=== PATIENT | female | born 1985 | race Caucasian/White ===

== ENCOUNTER 2017-07-17 16:09 | Emergency (ER) | payer OTHER ==
[2017-07-17] MEDS ORDERED: KETOROLAC 30 MG/ML 1 ML VIAL IVP STA (16:46)
[2017-07-17] MEDS ORDERED: SODIUM CHLORIDE 0.9% 1,000 ML IV ONE (16:46)
[2017-07-17 17:24] LABS: Basophils % (A) 1 %; Eosinophils # (A) 0.2 k/uL (0-0.7); Eosinophils % (A) 3 %; HCT 44.3 % (34.0-46.0); HGB 14.3 gm/dL (11.4-16.0); Lymphocytes # (A) 2.2 k/uL (1.0-4.8); Lymphocytes % (A) 28 %; MCH 28.5 pg (25.0-35.0); MCHC 32.3 g/dL (31.0-37.0); MCV 88.4 fL (80.0-100.0); Monocytes # (A) 0.5 k/uL (0-1.0); Monocytes % (A) 7 %; Neutrophils # (A) 4.8 k/uL (1.3-7.7); Neutrophils % (A) 60 %; Platelet Count 276 k/uL (150-450); RBC 5.02 m/uL (3.80-5.40); RDW 12.5 % (11.5-15.5); WBC 7.9 k/uL (3.8-10.6)
[2017-07-17 17:36] LABS: ALT 29 U/L (9-52); AST 27 U/L (14-36); Albumin 4.3 g/dL (3.5-5.0); Alkaline Phosphatase 46 U/L (38-126); Anion Gap 10 mmol/L; Blood Urea Nitrogen 9 mg/dL (7-17); Calcium 9.6 mg/dL (8.4-10.2); Carbon Dioxide 27 mmol/L (22-30); Chloride 104 mmol/L (98-107); Glucose 101 mg/dL (74-99); Potassium 3.6 mmol/L (3.5-5.1); Sodium 141 mmol/L (137-145); Total Bilirubin 0.4 mg/dL (0.2-1.3); Total Protein 7.1 g/dL (6.3-8.2)
--- NOTE | 2017-07-17 17:45 | ED ---
Chest Pain HPI - General Chief Complaint: Chest Pain Stated Complaint: Chest Pain Time Seen by Provider: 07/17/17 16:40 Source: patient Mode of arrival: wheelchair Limitations: no limitations - History of Present Illness Initial Comments: Is a 32-year-old female with no past medical history presents him in [facility] [place] for chest pain. She states it started last night before she went to bed and persisted through the night. She states that it woke her up multiple times throughout the night. She states that nothing seems to make it better or worse pain she describes as a sharp sensation. This lasted mild cough and shortness of breath associated with it. She denies any nausea, vomiting, or diarrhea. No fevers or chills. She denies any history of DVT or PE. She is not taking any control. She does have a family history of tachycardia per the mother. No other acute complaints at this time. - Related Data Previous Rx's Medication Instructions Recorded Methocarbamol [Robaxin] 1,000 mg PO QID #20 tab 07/17/17 Naproxen [Naprosyn] 500 mg PO Q12HR #30 tab 07/17/17 Allergies Allergy/AdvReac Type Severity Reaction Status Date / Time No Known Allergies Allergy Verified 07/17/17 16:51 Review of Systems ROS Statement: Those systems with pertinent positive or pertinent negative responses have been documented in the HPI. ROS Other: All systems not noted in ROS Statement are negative. Past Medical History Past Medical History: No Reported History History of Any Multi-Drug Resistant Organisms: None Reported Additional Past Surgical History / Comment(s): d&c Past Anesthesia/Blood Transfusion Reactions: No Reported Reaction Past Psychological History: No Psychological Hx Reported Smoking Status: Current every day smoker Past Alcohol Use History: None Reported Past Drug Use History: None Reported - Past Family History Father Family Medical History: No Reported History General Exam - General Exam Comments Initial Comments: [Awake alert] [Appears comfortable] Head: [Normocephalic atraumatic] Eyes: [no conjunctival injection] [No scleral icterus] [EOMI] Neck: [No JVD] [Supple] Heart: [Regular rate rhythm] [normal S1-S2] [no murmurs] Lungs: [Clear to auscultation bilaterally] [No wheezing] [No rales] Abdomen: [Soft] [nondistended] [nontender] Extremities: [Non edematous] [DP pulses intact] [Radial pulses intact] Neuro: [A&Ox3] [No focal neurologic deficits] Psych: [Appropriate mood and affect] Limitations: no limitations Course Vital Signs 07/17/17 07/17/17 16:13 18:04 Temperature 98.1 F Pulse Rate 108 H 84 Respiratory 16 18 Rate Blood Pressure 175/76 110/60 O2 Sat by Pulse 100 100 Oximetry - Reevaluation(s) Reevaluation #1: 07/17/17 18:22 EKG showing normal sinus rhythm with a rate of 94. No abnormal ST segment changes or T-wave inversions. QTC is 4:30. Other intervals normal. No ectopy. Chest Pain MDM - MDM This is a 32-year-old female who presents emergency department for chest pain. She was evaluated with a chest x-ray, troponin, EKG, and d-dimer. All of these were unremarkable. Patient was given Toradol and fluids and had improvement in her tachycardia and pain. Patient does state that she lifts a lot at work. I suspect that her pain may be chest wall discomfort. I'm going to start her on Naprosyn and Robaxin however told the patient that she needs further workup for this chest pain if it continues to be an issue. She is going to follow-up with her primary doctor, Dr. Ontiveors, and inquire about a stress test or other testing for her chest pain. I told her that she had worsening chest pain, or any new symptoms with her chest pain she is return emergency Department copied for reevaluation. All questions were answered. Disposition Clinical Impression: Chest pain Disposition: HOME SELF-CARE Condition: Stable Instructions: Chest Pain (ED) Prescriptions: Methocarbamol [Robaxin] 1,000 mg PO QID #20 tab Naproxen [Naprosyn] 500 mg PO Q12HR #30 tab Referrals: Nitesh Nicole MD [Primary Care Provider] - 1-2 days
[2017-07-17 17:52] LABS: Creatine Kinase MB 0.4 ng/mL (0.0-2.4); Troponin I <0.012 ng/mL (0.000-0.034)
--- NOTE | 2017-07-17 18:03 | XR ---
EXAMINATION TYPE: XR chest 2V DATE OF EXAM: 07/17/2017 COMPARISON: NONE HISTORY: Chest pain TECHNIQUE: Frontal and lateral views of the chest are obtained. FINDINGS: Heart and mediastinum are normal. Lungs are clear. Diaphragm is normal. Bony thorax appear s normal. IMPRESSION: Normal chest
[2017-07-17 18:26] VITALS: BP 116/63; PULSE 89; RESP 16; TEMP 98
== END 2017-07-17 18:32 | disposition home or self-care (01) ==
LOC: EC 16:09
DX: R07.9 Chest pain, unspecified (principal); R00.0 Tachycardia, unspecified; R05 Cough; R06.02 Shortness of breath; F17.200 Nicotine dependence, unspecified, uncomplicated; Z82.49 Family history of ischemic heart disease and other diseases of the circulatory system
CPT/HCPCS: 36415; 93005; 85379; 80053; 82553; 84484; 85025; 81025; 71046; 99285; 96374; 96361; J1885

== ENCOUNTER 2018-01-11 17:29 | Emergency (ER) | payer OTHER ==
[2018-01-11 17:43] VITALS: BP 128/80; PULSE 103; RESP 18; TEMP 98.5
[2018-01-11] MEDS ORDERED: BENZOCAINE SPRAY 1 CAN MUCOUS MEM ONE (18:24)
--- NOTE | 2018-01-11 18:29 | ED ---
ENT HPI - General Chief complaint: Dental/Oral Stated complaint: facial swelling Time Seen by Provider: 01/11/18 18:03 Source: patient Mode of arrival: ambulatory Limitations: no limitations - History of Present Illness Initial comments: This is a 32yo female with no PMH who presents today for cc of left upper tooth pay x2days and left sided facial swelling. Pt states that she had poor dentition and has had a cracked upper left tooth for weeks. She has been experiencing tooth sensitivity to hot and cold beverages since it cracked however last night the past was constant. She woke up this AM with left sided facial swelling and could feel a pocket near the cracked tooth. She was worried about an abscess and presented to the emergency department. Pt denies fever, chills, swelling below the mandible, masses/swelling bellow tongue, difficulty breathing or swallowing, confusion, dizziness, headache or any other symptoms. Pt states she just wants antibiotics so it doesnt spread. Upon presentation pt VS stable, afebrile. Patient denies any recent shortness of breath, chest pain, back pain, abdominal pain, nausea or vomiting, numbness or tingling, dysuria or hematuria, constipation or diarrhea, headaches or visual changes, or any other complaints. - Related Data Previous Rx's Medication Instructions Recorded Methocarbamol [Robaxin] 1,000 mg PO QID #20 tab 07/17/17 Naproxen [Naprosyn] 500 mg PO Q12HR #30 tab 07/17/17 Ibuprofen [Motrin] 800 mg PO Q6H PRN 7 Days #28 tab 01/11/18 Penicillin V Potassium [Pen Vee K] 500 mg PO QID 7 Days #28 tablet 01/11/18 Allergies Allergy/AdvReac Type Severity Reaction Status Date / Time No Known Allergies Allergy Verified 01/11/18 17:41 Review of Systems ROS Statement: Those systems with pertinent positive or pertinent negative responses have been documented in the HPI. ROS Other: All systems not noted in ROS Statement are negative. Constitutional: Denies: fever, chills, weakness, night sweats ENT: Reports: as per HPI, dental pain Respiratory: Denies: cough, dyspnea Cardiovascular: Denies: chest pain, palpitations Endocrine: Denies: fatigue Gastrointestinal: Denies: abdominal pain, nausea, diarrhea, constipation Genitourinary: Denies: urgency, dysuria Musculoskeletal: Denies: back pain Skin: Denies: rash, lesions Neurological: Denies: headache, weakness, numbness, paresthesias, confusion, abnormal gait Past Medical History Past Medical History: No Reported History History of Any Multi-Drug Resistant Organisms: None Reported Additional Past Surgical History / Comment(s): d&c Past Anesthesia/Blood Transfusion Reactions: No Reported Reaction Past Psychological History: No Psychological Hx Reported Smoking Status: Current every day smoker Past Alcohol Use History: None Reported Past Drug Use History: None Reported - Past Family History Father Family Medical History: No Reported History General Exam - General Exam Comments Initial Comments: General: The patient is awake and alert, in no distress, and does not appear acutely ill. Eye: Pupils are equal, round and reactive to light, extra-ocular movements are intact. No nystagmus. There is normal conjunctiva bilaterally. No signs of icterus. Ears, nose, mouth and throat: There are moist mucous membranes. Pt has overall poor dentition with multiple caries and cracked teeth. There is soft tissue swelling of the left side of the face, but it does not extend past angle of mandible. Pt has pain to percussion of tooth #14 and there is an adjacent area of fluctulance. No signs of active draining or tracking. No masses or lesions below tongue. No anterior cervical lymphadenopathy. Neck: The neck is supple, there is no tenderness or JVD. Cardiovascular: There is a regular rate and rhythm. No murmur, rub or gallop is appreciated. Respiratory: Lungs are clear to auscultation, respirations are non-labored, breath sounds are equal. No wheezes, stridor, rales, or rhonchi. Neurological: A&O x 3. CN II-XII intact, There are no obvious motor or sensory deficits. Coordination appears grossly intact. Speech is normal. Skin: Skin is warm and dry and no rashes or lesions are noted. Psychiatric: Cooperative, appropriate mood & affect, normal judgment. Limitations: no limitations Course Vital Signs 01/11/18 17:41 Temperature 98.5 F Pulse Rate 103 H Respiratory 18 Rate Blood Pressure 128/80 O2 Sat by Pulse 99 Oximetry Medical Decision Making - Medical Decision Making 32yo female with PMH of poor dentition and multiple dental caries presents today for cc of 2 days of left sided dental pain concerned for abscess. Palpable abscess on exam was numbed with topical hurricane spray and I&D was attempted with 18 gauge needle. Minimally purulent drainage was drained from abscess. Given physical exam findings, vital and history I have low suspicion for ludwigs angina, tracking or systemic spread of infection. Case discussed in detail with Dr. Vargas. Pt was discharged with Pen VK 500mg QID for 7 days and f/ u with oral surgery in 24 hours. Pt agreed with plan and was discharged in stable condition. Pt was educated on possible complications of dental infections and told to ER if these symptoms arise. Disposition Clinical Impression: Dental abscess Disposition: HOME SELF-CARE Condition: Good Instructions: Dental Abscess (ED) Additional Instructions: Please use medication as discussed. Please follow-up with oral surgery in the next 24 hours. Please return to emergency room if the symptoms increase or worsen or for any other concerns. [facility] [employer] [facility] [phone]- [facility]. Prescriptions: Ibuprofen [Motrin] 800 mg PO Q6H PRN 7 Days #28 tab PRN Reason: Pain Penicillin V Potassium [Pen Vee K] 500 mg PO QID 7 Days #28 tablet Is patient prescribed a controlled substance at d/c from ED?: No Referrals: Nitesh Nicole MD [Primary Care Provider] - 1-2 days Dave Rothman DDS [STAFF PHYSICIAN] - 1-2 days Time of Disposition: 18:29
== END 2018-01-11 18:33 | disposition home or self-care (01) ==
LOC: EC 17:29
DX: K04.7 Periapical abscess without sinus (principal); K02.9 Dental caries, unspecified; K03.81 Cracked tooth; F17.200 Nicotine dependence, unspecified, uncomplicated
CPT/HCPCS: 41800; 99283

== ENCOUNTER 2020-12-25 08:59 | Emergency (ER) | payer OTHER ==
[2020-12-25 09:04] VITALS: TEMP 97.7
[2020-12-25] MEDS ORDERED: MORPHINE SULFATE 4 MG/ML SYRINGE IM STA (09:16)
--- NOTE | 2020-12-25 09:22 | ED ---
General Adult HPI - General Chief complaint: Skin/Abscess/Foreign Body Stated complaint: R Breast Swelling Time Seen by Provider: 12/25/20 09:06 Source: patient, RN notes reviewed Mode of arrival: ambulatory Limitations: no limitations - History of Present Illness Initial comments: 45-year-old female presents to the emergency room for right breast pain. Patient reports that 2 days ago she started to notice her right breast was tender. Yesterday she notices it was swollen. Today she reports it is worse. States it is red and fevers. Denies breast-feeding. Patient does have nipple pierced which has been in place for quite some time. No recent piercings. Patient has no other complaints at this time including shortness of breath, chest pain, abdominal pain, nausea or vomiting, headache, or visual changes. - Related Data Previous Rx's Medication Instructions Recorded Cephalexin [Keflex] 500 mg PO Q6HR 10 Days #40 cap 12/25/20 Sulfamethox-Tmp 800-160Mg [Bactrim 1 tab PO Q12HR #20 tab 12/25/20 DS 800-160 mg] Allergies Allergy/AdvReac Type Severity Reaction Status Date / Time No Known Allergies Allergy Verified 12/25/20 09:31 Review of Systems ROS Statement: Those systems with pertinent positive or pertinent negative responses have been documented in the HPI. ROS Other: All systems not noted in ROS Statement are negative. Past Medical History Past Medical History: No Reported History History of Any Multi-Drug Resistant Organisms: None Reported Additional Past Surgical History / Comment(s): d&c Past Anesthesia/Blood Transfusion Reactions: No Reported Reaction Past Psychological History: No Psychological Hx Reported Smoking Status: Current every day smoker Past Alcohol Use History: None Reported Past Drug Use History: Marijuana - Past Family History Father Family Medical History: No Reported History General Exam Limitations: no limitations General appearance: alert, in no apparent distress Head exam: Present: atraumatic, normocephalic, normal inspection Eye exam: Present: normal appearance, PERRL, EOMI. Absent: scleral icterus, conjunctival injection, periorbital swelling ENT exam: Present: normal exam Neck exam: Present: normal inspection, full ROM. Absent: tenderness Respiratory exam: Present: normal lung sounds bilaterally, other (Patient does have tenderness noted to the right breast at about 9:00. There is also a mass palpated within the breast. Minimal erythema overlying. No purulent drainage from nipple piercing.). Absent: respiratory distress, wheezes Cardiovascular Exam: Present: regular rate, normal rhythm, normal heart sounds GI/Abdominal exam: Present: soft, normal bowel sounds. Absent: distended, tenderness, guarding, rebound, rigid Course Vital Signs 12/25/20 12/25/20 12/25/20 09:01 11:37 12:38 Temperature 97.7 F Pulse Rate 65 86 86 Respiratory 18 16 16 Rate Blood Pressure 114/68 123/79 116/74 O2 Sat by Pulse 100 99 97 Oximetry Medical Decision Making - Medical Decision Making Vitals are stable. Patient is afebrile. HPI and physical exam as documented. CBC does show leukocytosis of 16.9 with a left shift. CMP unremarkable. Ultrasound of the right breast shows a 2.3 x 1.8 x 1.8 cm complex area with surrounding edematous tissue probable abscess. Case discussed with Dr. Contreras who is going to do a bedside drainage in the ER. Request discharge with flex and Bactrim. We will also send her home with some pain medication. - Lab Data Result diagrams: 12/25/20 11:22 12/25/20 11:22 Lab Results 12/25/20 12/25/20 12/25/20 Range/Units 11:22 11:22 11:22 WBC 16.9 H (3.8-10.6) k/uL RBC 5.18 (3.80-5.40) m/uL Hgb 16.0 (11.4-16.0) gm/dL Hct 45.8 (34.0-46.0) % MCV 88.5 (80.0-100.0) fL MCH 31.0 (25.0-35.0) pg MCHC 35.0 (31.0-37.0) g/dL RDW 12.6 (11.5-15.5) % Plt Count 268 (150-450) k/uL MPV 7.2 Neutrophils % 77 % Lymphocytes % 15 % Monocytes % 7 % Eosinophils % 1 % Basophils % 0 % Neutrophils # 12.9 H (1.3-7.7) k/uL Lymphocytes # 2.5 (1.0-4.8) k/uL Monocytes # 1.1 H (0-1.0) k/uL Eosinophils # 0.2 (0-0.7) k/uL Basophils # 0.1 (0-0.2) k/uL PT 9.9 (9.0-12.0) sec INR 0.9 (<1.2) APTT 24.1 (22.0-30.0) sec Sodium 138 (137-145) mmol/L Potassium 4.5 (3.5-5.1) mmol/L Chloride 107 (98-107) mmol/L Carbon Dioxide 22 (22-30) mmol/L Anion Gap 9 mmol/L BUN 11 (7-17) mg/dL Creatinine 0.65 (0.52-1.04) mg/dL Est GFR (CKD-EPI)AfAm >90 (>60 ml/min/1.73 sqM) Est GFR (CKD-EPI)NonAf >90 (>60 ml/min/1.73 sqM) Glucose 95 (74-99) mg/dL Plasma Lactic Acid Frank (0.7-2.0) mmol/L Calcium 9.9 (8.4-10.2) mg/dL Total Bilirubin 1.0 (0.2-1.3) mg/dL AST 27 (14-36) U/L ALT 14 (4-34) U/L Alkaline Phosphatase 64 (38-126) U/L Total Protein 7.5 (6.3-8.2) g/dL Albumin 4.6 (3.5-5.0) g/dL 12/25/20 Range/Units 11:22 WBC (3.8-10.6) k/uL RBC (3.80-5.40) m/uL Hgb (11.4-16.0) gm/dL Hct (34.0-46.0) % MCV (80.0-100.0) fL MCH (25.0-35.0) pg MCHC (31.0-37.0) g/dL RDW (11.5-15.5) % Plt Count (150-450) k/uL MPV Neutrophils % % Lymphocytes % % Monocytes % % Eosinophils % % Basophils % % Neutrophils # (1.3-7.7) k/uL Lymphocytes # (1.0-4.8) k/uL Monocytes # (0-1.0) k/uL Eosinophils # (0-0.7) k/uL Basophils # (0-0.2) k/uL PT (9.0-12.0) sec INR (<1.2) APTT (22.0-30.0) sec Sodium (137-145) mmol/L Potassium (3.5-5.1) mmol/L Chloride (98-107) mmol/L Carbon Dioxide (22-30) mmol/L Anion Gap mmol/L BUN (7-17) mg/dL Creatinine (0.52-1.04) mg/dL Est GFR (CKD-EPI)AfAm (>60 ml/min/1.73 sqM) Est GFR (CKD-EPI)NonAf (>60 ml/min/1.73 sqM) Glucose (74-99) mg/dL Plasma Lactic Acid Frank 0.9 (0.7-2.0) mmol/L Calcium (8.4-10.2) mg/dL Total Bilirubin (0.2-1.3) mg/dL AST (14-36) U/L ALT (4-34) U/L Alkaline Phosphatase (38-126) U/L Total Protein (6.3-8.2) g/dL Albumin (3.5-5.0) g/dL Disposition Clinical Impression: Breast abscess Disposition: HOME SELF-CARE Condition: Good Instructions (If sedation given, give patient instructions): Abscess (ED) Additional Instructions: Please take Motrin and Tylenol for pain. Apply warm compresses to the area to promote drainage. Follow-up with Dr. Contreras outpatient. Return to the emergency room for any worsening symptoms. Prescriptions: Sulfamethox-Tmp 800-160Mg [Bactrim DS 800-160 mg] 1 tab PO Q12HR #20 tab Cephalexin [Keflex] 500 mg PO Q6HR 10 Days #40 cap Is patient prescribed a controlled substance at d/c from ED?: No Referrals: Nitesh Nicole MD [Primary Care Provider] - 1-2 days Raul Contreras MD [STAFF PHYSICIAN] - 1-2 days Time of Disposition: 15:08
[2020-12-25] MEDS ORDERED: HYDROmorphone 0.5 MG/0.5 ML SYRINGE IVP STA ×2 (11:17→12:56)
--- NOTE | 2020-12-25 11:18 | USB ---
Reason for exam: clinical finding. US Breast Limited RT Right limited breast ultrasound including focal area of concern, retroareolar and axilla demonstrates a 2.3 x 1.8 x 1.8cm complex area with surrounding edematous tissue at 9 o'clock, probably abscess. ASSESSMENT: Benign, BI-RAD 2
[2020-12-25] MEDS: SODIUM CHLORIDE 0.9% 500 ML 500 ML IV SCH ×2 (11:30→12:43)
[2020-12-25 11:38] VITALS: RESP 16
[2020-12-25 12:00] LABS: INR 0.9 (<1.2); Partial Thromboplastin Time 24.1 sec (22.0-30.0); Prothrombin Time 9.9 sec (9.0-12.0)
[2020-12-25 12:13] LABS: ALT 14 U/L (4-34); African American GFR (CKD) >90 (>60 ml/min/1.73 sqM); Albumin 4.6 g/dL (3.5-5.0); Anion Gap 9 mmol/L; Blood Urea Nitrogen 11 mg/dL (7-17); Calcium 9.9 mg/dL (8.4-10.2); Carbon Dioxide 22 mmol/L (22-30); Chloride 107 mmol/L (98-107); Glucose 95 mg/dL (74-99); Non-African American GFR(CKD) >90 (>60 ml/min/1.73 sqM); Sodium 138 mmol/L (137-145); Total Protein 7.5 g/dL (6.3-8.2)
[2020-12-25 12:18] LABS: Basophils # (A) 0.1 k/uL (0-0.2); Basophils % (A) 0 %; Eosinophils # (A) 0.2 k/uL (0-0.7); Eosinophils % (A) 1 %; HCT 45.8 % (34.0-46.0); Lymphocytes # (A) 2.5 k/uL (1.0-4.8); Lymphocytes % (A) 15 %; MCV 88.5 fL (80.0-100.0); Mean Platelet Volume 7.2; Monocytes # (A) 1.1 k/uL (0-1.0); Monocytes % (A) 7 %; Neutrophils # (A) 12.9 k/uL (1.3-7.7); Neutrophils % (A) 77 %; Platelet Count 268 k/uL (150-450); RBC 5.18 m/uL (3.80-5.40); RDW 12.6 % (11.5-15.5); WBC 16.9 k/uL (3.8-10.6)
[2020-12-25 12:33] LABS: AST 27 U/L (14-36); Alkaline Phosphatase 64 U/L (38-126); Potassium 4.5 mmol/L (3.5-5.1)
[2020-12-25] MEDS ORDERED: HYDROmorphone 1 MG/ML 1 ML SYRINGE IVP STA ×2 (13:30→15:05)
[2020-12-25] MEDS ORDERED: LIDOCAINE 1%-EPI 1:100,000 20 ML VIAL SQ STA ×2 (13:32→15:25)
[2020-12-25] MEDS ORDERED: ACET/COD 300 MG/30 MG STARTER PACK 6 TAB BTL PO STA (15:07)
[2020-12-25 15:47] VITALS: BP 123/89; PULSE 87
--- NOTE | 2020-12-25 15:49 | P.GSCN ---
History of Present Illness Consult date: 12/25/20 Reason for Consult: Right Breast abscess History of present illness: This is a 35-year-old female who presented to the emergency room with complaints of right breast pain. Patient was worked up found have evidence of right breast inflammation with possible abscess. Past Medical History Past Medical History: No Reported History History of Any Multi-Drug Resistant Organisms: None Reported Additional Past Surgical History / Comment(s): d&c Past Anesthesia/Blood Transfusion Reactions: No Reported Reaction Past Psychological History: No Psychological Hx Reported Smoking Status: Current every day smoker Past Alcohol Use History: None Reported Past Drug Use History: Marijuana - Past Family History Father Family Medical History: No Reported History Medications and Allergies Home Medications Medication Instructions Recorded Confirmed Type Cephalexin [Keflex] 500 mg PO Q6HR 10 Days #40 cap 12/25/20 Rx Sulfamethox-Tmp 800-160Mg [Bactrim 1 tab PO Q12HR #20 tab 12/25/20 Rx DS 800-160 mg] Allergies Allergy/AdvReac Type Severity Reaction Status Date / Time No Known Allergies Allergy Verified 12/25/20 09:31 Surgical - Exam Vital Signs Temp Pulse Resp BP Pulse Ox 97.7 F 65 18 114/68 100 12/25/20 09:01 12/25/20 09:01 12/25/20 09:01 12/25/20 09:01 12/25/20 09:01 - General well developed, well nourished, no distress - Eyes PERRL - ENT normal pinna - Neck no masses - Respiratory normal expansion - Cardiovascular Rhythm: regular - Abdomen Abdomen: soft, non tender - Integumentary Inflammatory changes of the right breast. The right breast is tender and swollen. There is some mild erythema at the 9 o'clock position Results - Labs 12/25/20 11:22 12/25/20 11:22 Abnormal Lab Results - Last 24 Hours (Table) 12/25/20 Range/Units 11:22 WBC 16.9 H (3.8-10.6) k/uL Neutrophils # 12.9 H (1.3-7.7) k/uL Monocytes # 1.1 H (0-1.0) k/uL Diabetes panel 12/25/20 Range/Units 11:22 Sodium 138 (137-145) mmol/L Potassium 4.5 (3.5-5.1) mmol/L Chloride 107 (98-107) mmol/L Carbon Dioxide 22 (22-30) mmol/L BUN 11 (7-17) mg/dL Creatinine 0.65 (0.52-1.04) mg/dL Glucose 95 (74-99) mg/dL Calcium 9.9 (8.4-10.2) mg/dL AST 27 (14-36) U/L ALT 14 (4-34) U/L Alkaline Phosphatase 64 (38-126) U/L Total Protein 7.5 (6.3-8.2) g/dL Albumin 4.6 (3.5-5.0) g/dL Calcium panel 12/25/20 Range/Units 11:22 Calcium 9.9 (8.4-10.2) mg/dL Albumin 4.6 (3.5-5.0) g/dL Pituitary panel 12/25/20 Range/Units 11:22 Sodium 138 (137-145) mmol/L Potassium 4.5 (3.5-5.1) mmol/L Chloride 107 (98-107) mmol/L Carbon Dioxide 22 (22-30) mmol/L BUN 11 (7-17) mg/dL Creatinine 0.65 (0.52-1.04) mg/dL Glucose 95 (74-99) mg/dL Calcium 9.9 (8.4-10.2) mg/dL Adrenal panel 12/25/20 Range/Units 11:22 Sodium 138 (137-145) mmol/L Potassium 4.5 (3.5-5.1) mmol/L Chloride 107 (98-107) mmol/L Carbon Dioxide 22 (22-30) mmol/L BUN 11 (7-17) mg/dL Creatinine 0.65 (0.52-1.04) mg/dL Glucose 95 (74-99) mg/dL Calcium 9.9 (8.4-10.2) mg/dL Total Bilirubin 1.0 (0.2-1.3) mg/dL AST 27 (14-36) U/L ALT 14 (4-34) U/L Alkaline Phosphatase 64 (38-126) U/L Total Protein 7.5 (6.3-8.2) g/dL Albumin 4.6 (3.5-5.0) g/dL Assessment and Plan Assessment: Right breast abscess. Patient will undergo incision and drainage
--- NOTE | 2020-12-25 15:50 | P.OP ---
Date of Procedure: 12/25/20 Preoperative Diagnosis: Right breast abscess Postoperative Diagnosis: Right breast abscess Procedure(s) Performed: Incision and drainage right breast abscess Anesthesia: local Surgeon: Raul Contreras Estimated Blood Loss (ml): 5 Pathology: other (Culture) Condition: stable Disposition: no change Description of Procedure: The patient's placed on her emergency room bed in the supine position. Her right breast was prepped and draped usual sterile fashion. The patient had an area of induration at the 9 o'clock position. The skin was anesthetized over this and the breast was anesthetized with 1% local Xylocaine. Using 11 blade a small incision was made. There was some pus which was seen. This was cultured. Approximate 5 mL of pus was removed from the breast. Sterile dressing was applied. Patient tolerated the procedure well.
== END 2020-12-25 15:46 | disposition home or self-care (01) ==
LOC: EC 08:59
DX: N61.1 Abscess of the breast and nipple (principal); F17.200 Nicotine dependence, unspecified, uncomplicated; F12.90 Cannabis use, unspecified, uncomplicated
CPT/HCPCS: 36415; 80053; 83605; 85025; 85610; 85730; 87040; 87070; 87205; 76642; 99284; 10060; 96374; 96376 ×3; 96372 ×3; 96361 ×2; J2270; J1170 ×2; 96375